=== PATIENT | male | born 1970 | race Caucasian/White ===

== ENCOUNTER 2018-12-07 17:46 | Emergency (ER) | payer OTHER ==
--- NOTE | 2018-12-07 18:11 | ED Physician Documentation ---
Upper Extremity Injury - HISTORIAN Historian: patient - HPI Stated Complaint: Right upper arm/shoulder pain s/p fall Chief Complaint: Upper Extremity Injury Additional Information: Patient slipped on ice just prior to admission. fell backwards on a right outstretched hand. Jolo a pop in the shoulder area with pain. Denies any previous shoulder problems, no previous should dislocations. Denies any weakness or numbness. Denies any other injuries. Onset: just prior to arrival Where: home Severity: moderate Duration: persistent since Context: fall Associated Symptoms: denies: tingling, numbness distally, feeling loss, loss of power to arms Modifying Factors: pain on movement - ROS CONST: no problems - PAST HX Past History: Rt handed Allergies/Adverse Reactions: Allergies Allergy/AdvReac Type Severity Reaction Status Date / Time No Known Drug Allergies Allergy Verified 12/07/18 19:01 Home Medications: Ambulatory Orders Medication Instructions Recorded NK 12/07/18 - SOCIAL HX Smoking History: quit less than 1 year Alcohol Use: rarely Drug Use: none - FAMILY HX Family History: none, no significant history - VITAL SIGNS Vital Signs: Vital Signs Temp Pulse Resp BP Pulse Ox 97.6 F 103 H 14 166/109 95 12/07/18 18:08 12/07/18 18:08 12/07/18 18:08 12/07/18 18:08 12/07/18 18:08 Procedures Joint Reduction Site: shoulder (R) Conscious Sedation: Yes (200mcg of Fentanyl) Reduction Attempts: 1 Pre-Procedure NV Exam: Yes (normal) Post Joint Reduction Film: post reduction neurovascular intact and normal, Progress - Progress Progress: Post reduction pain went from 6 to 1. No neurovascular deficit noted. Able to move should freely. ED Results Lab/Radiology - Radiology Radiology Impressions: Right shoulder 2 views Date of Exam: December 07, 2018. History: RT SHOULDER, PAIN IN RT SHOULDER AFTER FALL TODAY (Hx) / Findings: Right shoulder dislocation is present with anterior and tear displacement of the right humeral head. The right clavicle and scapula appear intact. The visualized right ribs are intact. Impression: Right shoulder dislocation. 2 views right shoulder Clinical history: Shoulder direction Findings: There is ac joint osteoarthritis. The shoulder joint is now normal. There is no fracture identified. Impression: Interval reduction of right shoulder dislocation - Orders Orders: ED Orders Category Date Time Status Place IV Lock 1T Care 12/07/18 18:57 Active SHOULDER 2 VIEWS OR MORE [RAD] Stat Exams 12/07/18 Taken SHOULDER 2 VIEWS OR MORE [RAD] Stat Exams 12/07/18 Taken 0.9 % Sodium Chloride [Normal Saline] 1,000 ml Med 12/07/18 19:00 Ordered IV Q10H Ketorolac Tromethamine [Toradol] Med 12/07/18 18:22 Discontinued 60 mg IM NOW ONE fentaNYL CITRATE/PF [Sublimaze] Med 12/07/18 19:23 Discontinued 100 mcg .ROUTE .STK-MED ONE fentaNYL CITRATE/PF [Sublimaze] Med 12/07/18 19:27 Discontinued 100 mcg .ROUTE .STK-MED ONE Upper Extremity Injury Physic - Physical Exam General Appearance: alert, moderate distress Hand: normal inspection, non-tender, no evidence of injury, normal ROM Wrist: normal inspection, non-tender, no evidence of injury, normal ROM Elbow/Forearm: normal inspection Shoulder: deformity (palpable anterior shoulder dislocation), limited ROM Neuro/Vascular/Tendon: no vascular compromise, motor nml, sensation nml. No: abnml cap refill, pulse deficit Skin: warm,dry Resp/CVS: chest non-tender, breath sounds nml, heart sounds nml, no resp. distress, lungs clear, reg. rate & rhythm Discharge Clincal Impression: Closed anterior dislocation of right shoulder Qualifiers: Encounter type: initial encounter Qualified Code(s): S43.014A - Anterior dislocation of right humerus, initial encounter Referrals: Primary Doctor,No [Primary Care Provider] - 2 Days Additional Instructions: Keep shoulder in immobilizer except to shower. Make an appointment at ortho for evaluation. Start doing gentle range of motion exercises in 3 days. Condition: Stable Disposition: 01 HOME, SELF-CARE Decision to Admit: NO Date of Decison to Admit: 12/07/18 Decision Time: 19:51
[2018-12-07] MEDS ORDERED: KETOROLAC TROMETHAMINE 60 MG/2 ML VIAL IM ONE (18:22)
[2018-12-07] MEDS ORDERED: 0.9 % SODIUM CHLORIDE 1,000 ML IV SCH (19:00)
[2018-12-07] MEDS ORDERED: 0.9 % SODIUM CHLORIDE 1,000 ML IV ONE (19:13)
[2018-12-07] MEDS ORDERED: fentaNYL CITRATE/PF 100 MCG/2 ML INJ. ONE ×2 (19:23→19:27)
[2018-12-07] MEDS ORDERED: fentaNYL CITRATE/PF 100 MCG/2 ML INJ. IVP ONE ×2 (21:15→21:17)
[2018-12-07 22:19] VITALS: BP 154/96
--- NOTE | 2018-12-08 06:21 | Diagnostic Imaging Report ---
KARLI GARCIA [facility] [id number] [facility] [address] [address] Report Submission Date: Dec 07, 2018 6:59:27 PM SUPERVISOR DIAGNOSTIC Patient Study Name: MIGUEL AVILA Date: Dec 07, 2018 6:44:20 PM SUPERVISOR DIAGNOSTIC Modality Type: DX Gender: M Description: SHOULDER 2 VIEWS OR MORE : 70 Institution: [facility] Physician: KARLI GARCIA Right shoulder 2 views Date of Exam: December 07, 2018. History: RT SHOULDER, PAIN IN RT SHOULDER AFTER FALL TODAY (Hx) / Findings: Right shoulder dislocation is present with anterior and tear displacement of the right humeral head. The right clavicle and scapula appear intact. The visualized right ribs are intact. Impression: Right shoulder dislocation. Electronically signed on Dec 07, 2018 6:59:27 PM SUPERVISOR DIAGNOSTIC by: Miranda LOPEZ
--- NOTE | 2018-12-08 06:22 | Diagnostic Imaging Report ---
KARLI GARCIA [facility] [address] [facility] [address] [address] Report Submission Date: Dec 07, 2018 8:05:03 PM CERTIFIED ADAPTIVE PHYSICAL EDUCATOR Patient Study Name: MIGUEL AVILA Date: Dec 07, 2018 7:37:00 PM CERTIFIED ADAPTIVE PHYSICAL EDUCATOR Modality Type: DX Gender: M Description: SHOULDER 2 VIEWS OR MORE : 70 Institution: [facility] Physician: KARLI GARCIA 2 views right shoulder Clinical history: Shoulder direction Findings: There is ac joint osteoarthritis. The shoulder joint is now normal. There is no fracture identified. Impression: Interval reduction of right shoulder dislocation Electronically signed on Dec 07, 2018 8:05:03 PM CERTIFIED ADAPTIVE PHYSICAL EDUCATOR by: Marc LOPEZ
== END 2018-12-07 20:28 | disposition home or self-care (01) ==
LOC: ED 17:46
DX: S43.014A Anterior dislocation of right humerus, initial encounter (principal); W00.9XXA Unspecified fall due to ice and snow, initial encounter; Y93.01 Activity, walking, marching and hiking; Y92.009 Unspecified place in unspecified non-institutional (private) residence as the place of occurrence of the external cause
CPT/HCPCS: 23650; 73030; 96372; 99283; 99284; J1885; J3010; J7030; S1016